=== PATIENT | male | born 1945 | race Caucasian/White ===

== ENCOUNTER 2017-06-04 08:50 | Emergency (ER) | payer MEDICARE, MEDICAID ==
[~2017-06-04] VITALS: Ht 160 cm; Wt 64.0 kg
[2017-06-04] MEDS ORDERED: AMLO10TA80 PO (09:05)
[2017-06-04] MEDS ORDERED: CLOP75TA33 PO (09:05)
[2017-06-04] MEDS ORDERED: TAMS0.4C31 PO (09:05)
[2017-06-04] MEDS ORDERED: ASPI-1159 PO (09:05)
[2017-06-04] MEDS ORDERED: LISI-604 PO (09:05)
[2017-06-04] MEDS ORDERED: METF500T4 PO (09:05)
[2017-06-04] MEDS ORDERED: METO-296 PO (09:05)
[2017-06-04] MEDS ORDERED: CLON0.1T PO (09:05)
[2017-06-04] MEDS ORDERED: SODIUM CHLORIDE 0.9% 1,000 ML IV ONE (09:19)
[2017-06-04 09:32] LABS: CLARITY URINE CLEAR (CLEAR); COLOR URINE YELLOW (YELLOW); GLUCOSE URINE NEGATIVE (NEGATIVE); KETONES URINE TRACE (NEGATIVE); LEUKOCYTE ESTERASE URINE NEGATIVE (NEGATIVE); NITRITE URINE NEGATIVE (NEGATIVE); OCCULT BLOOD URINE NEGATIVE (NEGATIVE); PROTEIN URINE 2+ (NEGATIVE); SPECIFIC GRAVITY URINE 1.016 (1.005-1.030); UROBILINOGEN URINE 0.2 E.U./dL (0.2-1.0)
[2017-06-04 10:42] LABS: BASOPHILS % 0.3 % (0.0-2.0); EOSINOPHILS % 0.7 % (0.0-5.0); HEMOGLOBIN. 10.8 g/dL (14.0-18.0); LYMPHOCYTES % 7.1 % (20.0-50.0); MEAN CORPUSCULAR HEMOGLOBIN 29.6 pg (28.0-32.0); MEAN CORPUSCULAR VOLUME 88.2 fL (80.0-94.0); MEAN PLATELET VOLUME 7.8 fl (7.4-10.4); MONOCYTES % 4.3 % (2.0-8.0); NEUTROPHILS % 87.6 % (40.0-76.0); PLATELET 264 x1000/uL (130-400); RED BLOOD CELL COUNT 3.63 mill/uL (4.7-6.1); RED CELL DISTRIBUTION WIDTH 15.1 % (11.6-14.6)
[2017-06-04 10:42] LABS: BG BASE EXCESS -3.8 mmol/L (-2.0-2.0); BG CARBOXYHEMOGLOBIN 0.2 % (0.5-1.5); BG DEOXYHEMOGLOBIN 3.7 % (0.0-5.0); BG HCO3 ACT 20.8 mmol/L (22.0-26.0); BG METHEMOGLOBIN 0.3 % (0.0-1.5); BG OXYGEN SATURATION 96.3 % (92.0-98.5); BG OXYHEMOGLOBIN 95.8 % (94.0-97.0); BG PCO2 36.4 mmHg (35.0-45.0); BG PH 7.375 (7.350-7.450); BG PO2 92.6 mmHg (75.0-100.0); BG SAMPLE SITE RIGHT BRACHIAL; BG TOTAL HEMOGLOBIN 11.8 g/dL (12.0-18.0); BG VENT MODE ROOM AIR
[2017-06-04] MEDS ORDERED: DESMOPRESSIN ACETATE 19 MCG in SODIUM CHLORIDE 0.9% 50 ML IV NR (10:45)
[2017-06-04] MEDS ORDERED: LABETALOL 5MG/ML SYR 20 MG/4 ML SYRINGE IV ONE ×2 (10:45→12:30)
[2017-06-04 10:58] LABS: CARBON DIOXIDE 25 mEq/L (21-32); CHLORIDE 107 mEq/L (98-107)
[2017-06-04 11:00] LABS: TROPONIN I < 0.02 ng/mL (0.00-0.04)
[2017-06-04 11:11] LABS: INR 1.1; PARTIAL THROMBOPLASTIN TIME 25.3 sec (24.0-34.0); PROTHROMBIN TIME 11.3 sec
[2017-06-04 12:13] VITALS: BP 162/69
[2017-06-04] MEDS ORDERED: LABETALOL 5MG/ML SYR 20 MG/4 ML SYRINGE IV NR (12:45)
== END 2017-06-04 12:35 | disposition short-term general hospital (02) ==
LOC: ER 09:04 → CANBEDREQ 13:17
DX: I61.5 Nontraumatic intracerebral hemorrhage, intraventricular (principal); G91.9 Hydrocephalus, unspecified; I10 Essential (primary) hypertension; E11.9 Type 2 diabetes mellitus without complications; E78.00 Pure hypercholesterolemia, unspecified; Z79.82 Long term (current) use of aspirin; Z86.73 Personal history of transient ischemic attack (TIA), and cerebral infarction without residual deficits
CPT/HCPCS: 36415; 36600; 51702; 70450; 71010; 80053; 81001; 82375; 82805; 82962; 83605; 83735; 83880; 84484; 85025; 85610; 85730; 87040; 87086; 93005; 96361; 96365; 96375; 99291; J2597; J3490; J7030; A4315